=== PATIENT | female | born 1945 | race Caucasian/White ===

== ENCOUNTER → 2024-08-04 06:22 | Day surgery (SDC) | payer MEDICARE, SELFPAY | LOC: GI 06:22 | PROVIDERS: ATTENDING PHYSICIAN Internal Medicine Gastroenterology; FAMILY PHYSICIAN Nurse Practitioner | DX: D12.0 Benign neoplasm of cecum (principal); D12.5 Benign neoplasm of sigmoid colon; K57.50 Diverticulosis of both small and large intestine without perforation or abscess without bleeding; K55.20 Angiodysplasia of colon without hemorrhage; Q43.8 Other specified congenital malformations of intestine; D50.0 Iron deficiency anemia secondary to blood loss (chronic); K62.1 Rectal polyp; K21.00 Gastro-esophageal reflux disease with esophagitis, without bleeding; Z90.49 Acquired absence of other specified parts of digestive tract; Z90.411 Acquired partial absence of pancreas | CPT/HCPCS: 45385; 43239; 88305 ==